=== PATIENT | male | born 1965 | race Caucasian/White ===

== ENCOUNTER 2024-03-21 14:47 | Emergency (ER) | payer MEDICAID, OTHER ==
[~2024-03-21] VITALS: Ht 170.2 cm; Wt 73.0 kg
[2024-03-21 14:50] VITALS: BP 112/83; TEMP 98.4; O2SAT 99
[2024-03-21] MEDS ORDERED: PSEU120T99 PO (15:58)
== END 2024-03-21 16:05 | disposition home or self-care (01) ==
LOC: ER 15:10
DX: B34.9 Viral infection, unspecified (principal); H61.21 Impacted cerumen, right ear
CPT/HCPCS: 99282; 69209; A6403

== ENCOUNTER 2024-10-05 15:15 | Emergency (ER) | payer OTHER ==
[~2024-10-05] VITALS: Ht 170.2 cm; Wt 72.6 kg
[~2024-10-05 15:15] MED LIST: PSEU120T99 PO
[2024-10-05 15:30] VITALS: BP 117/81; TEMP 97.9
[2024-10-05 16:09] LABS: BASOPHILS % (AUTO) 1.1 % (0.0-2.0); EOSINOPHILS # (AUTO) 0.2 K/uL (0.0-0.7); EOSINOPHILS % (AUTO) 3.6 % (0.0-6.0); HEMATOCRIT 44 % (39-51); HEMOGLOBIN 15.2 g/dL (13.5-17.5); LYMPHOCYTES # (AUTO) 1.5 K/uL (0.8-4.8); LYMPHOCYTES % (AUTO) 33.4 % (20.0-44.0); MEAN CORPUSCULAR HEMOGLOBIN 32 PG (26.0-33.0); MEAN CORPUSCULAR HGB CONC 34 g/dl (31.0-36.0); MEAN CORPUSCULAR VOLUME 93 fL (80-96); MONOCYTES # (AUTO) 0.5 K/uL (0.1-1.30); MONOCYTES % (AUTO) 10.3 % (2.0-12.0); NEUTROPHILS # (AUTO) 2.3 K/uL (1.8-8.9); NEUTROPHILS % (AUTO) 51.6 % (43.0-81.0); PLATELET COUNT (AUTO) 187 K/uL (150-450); RED BLOOD CELL COUNT(AUTO) 4.78 MIL/uL (4.5-6.0); RED CELL DISTRIBUTION WIDTH 13.9 % (11.5-15.0); WHITE BLOOD COUNT (AUTO) 4.5 K/uL (4.3-11.0)
[2024-10-05 16:18] LABS: CALCIUM, SERUM 9.2 mg/dL (8.5-10.1); CREATININE 0.8 mg/dL (0.6-1.3); POTASSIUM 4.1 mmol/L (3.5-5.1)
[2024-10-05 17:21] LABS: APPEARANCE,URINE CLEAR (CLEAR); BILIRUBIN,URINE NEGATIVE (NEGATIVE); BLOOD, URINE NEGATIVE Ery/uL (NEGATIVE); COLOR,URINE YELLOW (YELLOW); KETONES,URINE 1+ mg/dL (NEGATIVE); LEUKOCYTE ESTERASE ,URINE NEGATIVE (NEGATIVE); NITRITE, URINE NEGATIVE (NEGATIVE); PROTEIN,URINE NEGATIVE (NEGATIVE); UGLUCOSE NEGATIVE (NEGATIVE); UROBILINOGEN,URINE 0.2 EU/dL (0.2)
[2024-10-05] MEDS ORDERED: ACET-2030 PO (17:23)
[2024-10-05 17:39] VITALS: O2SAT 98
[2024-10-05 18:44] LABS: RBC,URINE 0-2 /HPF (0-2); WBC,URINE NONE SEEN /HPF (0-3)
[2024-10-05 18:45] LABS: ADD URINE CULTURE NO; BACTERIA,URINE None seen /HPF (None Seen); SQUAMOUS EPITHELIAL CELL,UR Rare /HPF (None Seen)
== END 2024-10-05 17:40 | disposition home or self-care (01) ==
LOC: ER 15:25
DX: M79.18 Myalgia, other site (principal); R10.32 Left lower quadrant pain; Z79.899 Other long term (current) drug therapy
CPT/HCPCS: 36415; 71100-TC; 80048-TC; 81001; 83690-TC; 85025-TC

== ENCOUNTER 2024-10-10 14:24 | Emergency (ER) | payer OTHER ==
[~2024-10-10] VITALS: Ht 170.2 cm; Wt 69.4 kg
[~2024-10-10 14:24] MED LIST changes: +ACET-2030 PO
[2024-10-10 14:33] VITALS: BP 137/81; TEMP 98.1
[2024-10-10] MEDS ORDERED: FAMOTIDINE (20 MG) 20 MG TABLET ONE (15:07)
[2024-10-10] MEDS ORDERED: ACETAMINOPHEN ES 500 MG TABLET ONE (15:07)
[2024-10-10] MEDS ORDERED: MAG HYDROX/AL HYDROX/SIMETH 30 ML UDC ONE (15:08)
[2024-10-10] MEDS ORDERED: LIDOCAINE VISCOUS 2% UD 15 ML UDC ONE (15:08)
[2024-10-10] MEDS: LIDOCAINE VISCOUS 2% UD 15 ML UDC MM ONE (15:13)
[2024-10-10] MEDS: FAMOTIDINE (20 MG) 20 MG TABLET PO ONE (15:13)
[2024-10-10] MEDS: MAG HYDROX/AL HYDROX/SIMETH 30 ML UDC PO ONE (15:13)
[2024-10-10] MEDS: ACETAMINOPHEN ES 500 MG TABLET PO ONE (15:14)
[2024-10-10 15:27] VITALS: O2SAT 99
== END 2024-10-10 15:55 | disposition home or self-care (01) ==
LOC: ER 14:25
DX: M79.18 Myalgia, other site (principal); R07.81 Pleurodynia; K21.9 Gastro-esophageal reflux disease without esophagitis; Z79.899 Other long term (current) drug therapy

== ENCOUNTER 2025-05-16 19:45 | Emergency (ER) | payer OTHER ==
[~2025-05-16] VITALS: Ht 170.2 cm; Wt 73.9 kg
[2025-05-16 20:05] VITALS: TEMP 97.7
[2025-05-16 20:15] VITALS: BP 129/75; O2SAT 99
[2025-05-16] MEDS ORDERED: KETOROLAC TROMETHAMINE INJ 60 MG/2 ML VIAL IM ONE (20:19)
[2025-05-16] MEDS ORDERED: ACETAMINOPHEN ES 500 MG TABLET ONE (20:19)
[2025-05-16] MEDS: KETOROLAC TROMETHAMINE INJ 30 MG/ML VIAL IM ONE (20:24)
[2025-05-16] MEDS: ACETAMINOPHEN 325 MG TABLET PO ONE (20:24)
[2025-05-16] MEDS ORDERED: NAPR-1009 PO (21:08)
== END 2025-05-16 21:14 | disposition home or self-care (01) ==
LOC: ER 19:54
DX: G44.209 Tension-type headache, unspecified, not intractable (principal)
CPT/HCPCS: 99285; 70450; 96372; J1885